=== PATIENT | male | born 1945 | race Caucasian/White ===

== ENCOUNTER 2018-06-27 23:40 | Emergency (ER) | payer OTHER ==
[2018-06-28] MEDS ORDERED: NA CHLORIDE 0.9% 1,000 ML ONE (00:20)
[2018-06-28 00:51] LABS: Absolute Lymphocytes (CBC) 0.5 K/uL (0.7-4.9); Absolute Monocytes 0.3 K/uL (0.1-1.3); Absolute Neutrophil 6.9 K/uL (1.8-8.0); Basophils % 0.2 % (0-1.3); Eosinophils % 1.9 % (0-4.4); Hematocrit 42.6 % (39.6-49.0); Lymphocytes % 6.2 % (15.3-44.8); MPV 8.1 fL (7.6-11.3); Monocytes % 3.8 % (3.3-12.3); RBC Red Blood Cell Count 5.08 M/uL (4.33-5.43)
[2018-06-28 01:14] LABS: ALT/SGPT 34 U/L (12-78); AST/SGOT 25 U/L (15-37); Albumin 3.5 g/dL (3.4-5.0); Alkaline Phosphatase 94 U/L (45-117); BUN Blood Urea Nitrogen 18 mg/dL (7-18); Bicarbonate 23 mmol/L (21-32); Bilirubin Direct 0.1 mg/dL (0-0.2); Bilirubin Total 0.4 mg/dL (0.2-1.0); Creatine Phosphokinase 117 U/L (39-308); Glucose Level 198 mg/dL (74-106); Potassium 3.7 mmol/L (3.5-5.1); Protein, Total 6.6 g/dL (6.4-8.2); Sodium Level 143 mmol/L (136-145); Troponin (Emerg Dept Use Only) < 0.02 ng/mL (0.0-0.045)
[2018-06-28 02:19] LABS: Urine Bacteria <20 /HPF (NONE SEEN); Urine Culture Reflex Order NOT NEEDED; Urine Mucus LIGHT /HPF (NONE SEEN); Urine RBC NONE SEEN /HPF (NONE SEEN)
--- NOTE | 2018-06-28 02:44 | ER ---
Nurse's Notes [facility] Name: John Marquez Age: 73 yrs Sex: Male : 1945 Arrival Date: 06/27/2018 Time: 23:45 Bed 27 Private MD: Diagnosis: Chills (without fever);Vomiting, unspecified Presentation: 06/28 00:00 Presenting complaint: Patient states: Around 9 I started to have some shivering and la1 chills, I then threw up and felt a bit better but I have been having a temp of 99.1. Transition of care: patient was not received from another setting of care. Onset of symptoms was June 28, 2018. Risk Assessment: Do you want to hurt yourself or someone else? Patient reports no desire to harm self or others. Initial Sepsis Screen: Does the patient meet any 2 criteria? No. Patient's initial sepsis screen is negative. Does the patient have a suspected source of infection? No. Patient's initial sepsis screen is negative. Care prior to arrival: None. 00:00 Method Of Arrival: Ambulatory la1 00:00 Acuity: NATALI 3 la1 Triage Assessment: 00:31 GI: Reports vomiting. rv Historical: - Allergies: 00:02 SHELLFISH; la1 - Home Meds: 00:02 Bystolic 10 mg oral tab 1 tab once daily [Active]; Zyrtec 10 mg Oral chew 1 tab once la1 daily [Active]; Pepcid 20 mg Oral tab 1 tab every 6 hours [Active]; aspirin 81 mg Oral TbEC 1 tab once daily [Active]; - PMHx: 00:02 Hypertension; hives; la1 - PSHx: 00:02 Cholecystectomy; Lithotripsy; la1 - Immunization history:: Adult Immunizations up to date. - Social history:: Smoking status: Patient/guardian denies using tobacco. - Ebola Screening: : No symptoms or risks identified at this time. Screenin:30 Abuse screen: Denies threats or abuse. Denies injuries from another. Nutritional rv screening: No deficits noted. Tuberculosis screening: No symptoms or risk factors identified. Fall Risk None identified. Assessment: 00:29 General: Appears in no apparent distress. comfortable, Behavior is calm, cooperative. rv Pain: Denies pain. Neuro: Level of Consciousness is awake, alert, obeys commands, Oriented to person, place, time, situation. Cardiovascular: Capillary refill < 3 seconds. Respiratory: Airway is patent. GI: Abdomen is flat. : No signs and/or symptoms were reported regarding the genitourinary system. EENT: No signs and/or symptoms were reported regarding the EENT system. Derm: Skin is intact. Musculoskeletal: No signs and/or symptoms reported regarding the musculoskeletal system. 02:37 Reassessment: Patient appears in no apparent distress at this time. Patient and/or rv family updated on plan of care and expected duration. Pain level reassessed. Patient is alert, oriented x 3, equal unlabored respirations, skin warm/dry/pink. Vital Signs: 00:03 BP 135 / 66; Pulse 98; Resp 18; Temp 99.1(O); Pulse Ox 98% on R/A; Weight 88.45 kg; la1 Height 6 ft. 6 in. (198.12 cm); 00:45 BP 131 / 71; Pulse 84; Resp 18 S; Pulse Ox 98% on R/A; rv 01:40 BP 120 / 69; Pulse 81; Resp 18 S; Pulse Ox 98% on R/A; rv 02:15 BP 127 / 72; Pulse 73; Resp 16 S; Pulse Ox 99% on R/A; rv 00:03 Body Mass Index 22.53 (88.45 kg, 198.12 cm) la1 ED Course: 06/27 23:45 Patient arrived in ED. ds1 23:53 Ashley Eng FNP-C [facility]. snw 23:53 Devante Burns MD is Attending Physician. w 06/28 00:00 Ian Rodrigez RN is Primary Nurse. la1 00:01 Triage completed. la1 00:03 Arm band placed on left wrist. la1 00:05 Inserted saline lock: 20 gauge in left forearm, using aseptic technique. Blood rv collected. 00:29 Flu Sent. rv 00:31 Patient has correct armband on for positive identification. Placed in gown. Bed in low rv position. Call light in reach. Side rails up X 1. Adult w/ patient. Pulse ox on. NIBP on. 02:00 Urine Microscopic Only Sent. rv 02:01 Urine Culture Sent. rv 02:59 No provider procedures requiring assistance completed. IV discontinued, bleeding rv controlled, No redness/swelling at site. Pressure dressing applied. Administered Medications: 00:28 Drug: NS 0.9% 1000 ml Route: IV; Rate: 125 ml/hr; Site: left forearm; rv Outcome: 02:44 Discharge ordered by . jer 03:00 Discharged to home ambulatory. rv 03:00 Condition: good 03:00 Discharge instructions given to patient, Instructed on discharge instructions, follow up and referral plans. Demonstrated understanding of instructions, follow-up care. 03:00 Patient left the ED. rv Signatures: Ashley Eng, QUILL WORKER-C QUILL WORKER-Csnw Deepika La ds1 Ian Rodrigez, RN RN la1 Delio Tan RN RN rv
--- NOTE | 2018-06-28 02:44 | EDPHYS ---
Physician Documentation [facility] Name: John Marquez Age: 73 yrs Sex: Male : 1945 Arrival Date: 06/27/2018 Time: 23:45 Bed 27 Private MD: ED Physician Devante Burns HPI: 06/28 00:15 This 73 yrs old Male presents to ER via Ambulatory with complaints of Chills, snw Vomiting. 00:15 Sudden onset of chills, nausea, vomited x 1. Onset: The symptoms/episode began/occurred snw suddenly, just prior to arrival. Severity of symptoms: At their worst the symptoms were severe in the emergency department the symptoms have improved moderately. The patient has not experienced similar symptoms in the past. seeing Dr. Gambino for urticaria. Historical: - Allergies: 00:02 SHELLFISH; la1 - Home Meds: 00:02 Bystolic 10 mg oral tab 1 tab once daily [Active]; Zyrtec 10 mg Oral chew 1 tab once la1 daily [Active]; Pepcid 20 mg Oral tab 1 tab every 6 hours [Active]; aspirin 81 mg Oral TbEC 1 tab once daily [Active]; - PMHx: 00:02 Hypertension; hives; la1 - PSHx: 00:02 Cholecystectomy; Lithotripsy; la1 - Immunization history:: Adult Immunizations up to date. - Social history:: Smoking status: Patient/guardian denies using tobacco. - Ebola Screening: : No symptoms or risks identified at this time. ROS: 00:14 Eyes: Negative for injury, pain, redness, and discharge, ENT: Negative for injury, snw pain, and discharge, Neck: Negative for injury, pain, and swelling, Cardiovascular: Negative for chest pain, palpitations, and edema, Respiratory: Negative for shortness of breath, cough, wheezing, and pleuritic chest pain. 00:14 Back: Negative for injury and pain, : Negative for injury, bleeding, discharge, and swelling, MS/Extremity: Negative for injury and deformity, Skin: Negative for injury, rash, and discoloration, Neuro: Negative for headache, weakness, numbness, tingling, and seizure. 00:14 Constitutional: Positive for body aches, chills, fever, malaise. 00:14 Abdomen/GI: Positive for vomiting. Exam: 00:14 Head/Face: Normocephalic, atraumatic. Eyes: Pupils equal round and reactive to light, snw extra-ocular motions intact. Lids and lashes normal. Conjunctiva and sclera are non-icteric and not injected. Cornea within normal limits. Periorbital areas with no swelling, redness, or edema. ENT: Nares patent. No nasal discharge, no septal abnormalities noted. Tympanic membranes are normal and external auditory canals are clear. Oropharynx with no redness, swelling, or masses, exudates, or evidence of obstruction, uvula midline. Mucous membranes moist. Neck: Trachea midline, no thyromegaly or masses palpated, and no cervical lymphadenopathy. Supple, full range of motion without nuchal rigidity, or vertebral point tenderness. No Meningismus. Chest/axilla: Normal chest wall appearance and motion. Nontender with no deformity. No lesions are appreciated. Cardiovascular: Regular rate and rhythm with a normal S1 and S2. No gallops, murmurs, or rubs. Normal PMI, no JVD. No pulse deficits. Respiratory: Lungs have equal breath sounds bilaterally, clear to auscultation and percussion. No rales, rhonchi or wheezes noted. No increased work of breathing, no retractions or nasal flaring. Abdomen/GI: Soft, non-tender, with normal bowel sounds. No distension or tympany. No guarding or rebound. No evidence of tenderness throughout. Back: No spinal tenderness. No costovertebral tenderness. Full range of motion. Skin: Warm, dry with normal turgor. Normal color with no rashes, no lesions, and no evidence of cellulitis. MS/ Extremity: Pulses equal, no cyanosis. Neurovascular intact. Full, normal range of motion. Neuro: Awake and alert, GCS 15, oriented to person, place, time, and situation. Cranial nerves II-XII grossly intact. Motor strength 5/5 in all extremities. Sensory grossly intact. Cerebellar exam normal. Normal gait. Psych: Awake, alert, with orientation to person, place and time. Behavior, mood, and affect are within normal limits. 00:14 Constitutional: The patient appears alert, awake, uncomfortable. Vital Signs: 00:03 BP 135 / 66; Pulse 98; Resp 18; Temp 99.1(O); Pulse Ox 98% on R/A; Weight 88.45 kg; la1 Height 6 ft. 6 in. (198.12 cm); 00:45 BP 131 / 71; Pulse 84; Resp 18 S; Pulse Ox 98% on R/A; rv 01:40 BP 120 / 69; Pulse 81; Resp 18 S; Pulse Ox 98% on R/A; rv 02:15 BP 127 / 72; Pulse 73; Resp 16 S; Pulse Ox 99% on R/A; rv 00:03 Body Mass Index 22.53 (88.45 kg, 198.12 cm) la1 MDM: 06/27 23:57 Patient medically screened. snw 06/28 02:45 Data reviewed: vital signs, nurses notes. Data interpreted: Pulse oximetry: on room air snw is 99 %. Interpretation: normal. Counseling: I had a detailed discussion with the patient and/or guardian regarding: the historical points, exam findings, and any diagnostic results supporting the discharge/admit diagnosis, lab results, the need for outpatient follow up, to return to the emergency department if symptoms worsen or persist or if there are any questions or concerns that arise at home. Special discussion: Based on the history and exam findings, there is no indication for further emergent testing or inpatient evaluation. I discussed with the patient/guardian the need to see the primary care provider for further evaluation of the symptoms. 06/27 23:54 Order name: Flu; Complete Time: 00:37 snw 06/27 23:54 Order name: Urine Culture snw 06/27 23:54 Order name: Urine Microscopic Only; Complete Time: 02:20 snw 06/28 00:05 Order name: Blood Culture Adult (2) snw 06/28 00:05 Order name: CBC with Diff; Complete Time: 01:00 snw 06/28 00:05 Order name: Chem 7; Complete Time: 01:27 snw 06/27 23:54 Order name: Urine Dipstick-Ancillary (obtain specimen); Complete Time: 02:00 snw 06/28 00:05 Order name: LFT's; Complete Time: :27 snw 06/28 00:05 Order name: CPK; Complete Time: 01:27 snw 06/28 00:05 Order name: Troponin (emerg Dept Use Only); Complete Time: 01:27 snw Administered Medications: 00:28 Drug: NS 0.9% 1000 ml Route: IV; Rate: 125 ml/hr; Site: left forearm; rv Disposition: 03:07 Co-signature as Attending Physician, Devante Burns MD. rn Disposition: 06/28/18 02:44 Discharged to Home. Impression: Chills (without fever), Vomiting, unspecified. - Condition is Stable. - Discharge Instructions: Fever, Adult, Nausea and Vomiting, Adult, Rehydration, Elderly. - Medication Reconciliation Form, Thank You Letter, Antibiotic Education, Prescription Opioid Use form. - Follow up: Private Physician; When: 1 - 2 days; Reason: Recheck today's complaints, Continuance of care, Re-evaluation by your physician. Follow up: Emergency Department; When: As needed; Reason: Worsening of condition. Signatures: Dispatcher [employer] EDMS Ashley Eng, CONE MACHINE OPERATOR-C CONE MACHINE OPERATOR-Csnw Devante Burns MD MD rn Attema, Lee RN RN la1 Delio Tan RN RN rv Corrections: (The following items were deleted from the chart) 03:00 02:44 06/28/2018 02:44 Discharged to Home. Impression: Chills (without fever); rv Vomiting, unspecified. Condition is Stable. Forms are Medication Reconciliation Form, Thank You Letter, Antibiotic Education, Prescription Opioid Use. Follow up: Private Physician; When: 1 - 2 days; Reason: Recheck today's complaints, Continuance of care, Re-evaluation by your physician. Follow up: Emergency Department; When: As needed; Reason: Worsening of condition. snw
== END 2018-06-28 03:00 | disposition home or self-care (01) ==
LOC: ER 23:40
DX: R11.10 Vomiting, unspecified (principal); I10 Essential (primary) hypertension; Z79.82 Long term (current) use of aspirin; Z91.013 Allergy to seafood
CPT/HCPCS: 36415; 80048; 80076; 81015; 82550; 84484; 85025; 87040 ×2; 87086; 87088; 87804 ×2; 99284; J7030

== ENCOUNTER 2021-05-31 17:34 | Inpatient (IN) | payer OTHER ==
--- OUTSIDE RECORDS SUMMARY | 2021-05-31 17:37 | XMS REPORT | Continuity of Care Document ---
:1945 Author Organization [facility] t Address [address] [place] [address] Care Team Providers Name Role Phone Maki Attending Clinician Unavailable EVE Attending Clinician Unavailable Problems This patient has no known problems. Allergies, Adverse Reactions, Alerts This patient has no known allergies or adverse reactions. Medications This patient has no known medications. Procedures This patient has no known procedures. Encounters Start End Encounter Admission Attending Care Care Encounter Source Date/Time Date/Time Type Type Clinicians Facility Department ID 2021-05-29 Outpatient CARLY Gambino [facility] [id number] 13:46:30 [place] [id number] [facility] 2021-04-02 2021-04-02 [facility] [id number] 00:00:00 00:00:00 [place] [address] 2021-03-05 2021-03-05 [facility] [id number] 00:00:00 00:00:00 [place] [address] Results This patient has no known results.
--- NOTE | 2021-05-31 18:05 | RAD REPORT ---
EXAM DESCRIPTION: CT - Ct Stroke Brain Wo Cont - 05/31/2021 5:56 pm CLINICAL HISTORY: Confusion/alteration of awareness COMPARISON: 2015 TECHNIQUE: Computed axial tomography of the head was obtained. All CT scans are performed using dose optimization technique as appropriate and may include automated exposure control or mA/KV adjustment according to patient size. FINDINGS: An intracranial bleed is not seen . The ventricles are normal in caliber. No extra-axial fluid collection is noted. Mild right maxillary sinusitis IMPRESSION: No acute intracranial abnormality is seen. If patient's symptoms persist MRI of the bra in would be recommended. Dr Dick of the emergency room was notified at 5:59 p.m. May 31, 2021
[2021-05-31 18:12] LABS: Absolute Lymphocytes (CBC) 2.2 K/uL (0.7-4.9); Hematocrit 43.2 % (39.6-49.0); Lymphocytes % 27.6 % (15.3-44.8); MPV 7.5 fL (7.6-11.3); RBC Red Blood Cell Count 5.05 M/uL (4.33-5.43)
[2021-05-31 18:23] LABS: Protime INR 0.97
[2021-05-31 18:24] LABS: Potassium 3.6 mmol/L (3.5-5.1)
--- NOTE | 2021-05-31 18:41 | RAD REPORT ---
EXAM DESCRIPTION: Wolfgang Single View05/31/2021 6:27 pm CLINICAL HISTORY: confusion COMPARISON: February 2021 FINDINGS: The lungs appear clear of acute infiltrate. The heart is normal size IMPRESSION: No acute abnormalities displayed
--- NOTE | 2021-05-31 20:01 | EDPHYS ---
Physician Documentation [facility] Name: John Marquez Age: 76 yrs Sex: Male : 1945 Arrival Date: 05/31/2021 Time: 17:35 Bed 13 Private MD: ED Physician Tito Dick HPI: 05/31 18:19 This 76 yrs old Male presents to ER via Ambulatory with complaints of confusion. kdr 18:19 The patient presents with confusion, States that he was not able to recall names of kdr people that he normally would have command of. These individuals were persons currently in his life from spiritism and elsewhere that he would normally have recall of. His stated that he did not have any slurred speech or any other changes in his mental status. There is also no other weakness or numbness in his extremities. Since initially noted, he seems to improved.. Onset: The symptoms/episode began/occurred suddenly, just prior to arrival. Possible causes: CVA or TIA. Associated signs and symptoms: The patient has no apparent associated signs or symptoms. Current symptoms: In the emergency department the patient's symptoms have improved, markedly. Patient's baseline: Neuro: alert and fully oriented, Motor: no deficits, Ambulation: walks without assistance, Speech: normal, The patient has a previous history of Hypertension. The patient has not experienced similar symptoms in the past. The patient has not recently seen a physician. Discussed with Dr. Grajeda: Plan "A": Transfer to [facility]; plan "B" observation here at [facility]; plan "C" discharge home with treatment. Historical: - Allergies: 17:59 SHELLFISH; ap3 - Home Meds: 18:20 aspirin 81 mg Oral TbEC 1 tab once daily [Active]; Bystolic 10 mg Oral tab 1 tab once jh6 daily [Active]; Pepcid 20 mg Oral tab 1 tab every 6 hours [Active]; Zyrtec 10 mg Oral chew 1 tab once daily [Active]; - PMHx: 17:59 Hives; Hypertension; ap3 18:20 Transient cerebral ischemia; jh6 - PSHx: 17:59 Cholecystectomy; ap3 - Immunization history:: Client reports receiving the 2nd dose of the Covid vaccine, and booster. - Social history:: Smoking status: Patient denies any tobacco usage or history of. ROS: 18:19 Constitutional: Negative for fever, chills, and weight loss, Eyes: Negative for injury, kdr pain, redness, and discharge, ENT: Negative for injury, pain, and discharge, Neck: Negative for injury, pain, and swelling, Cardiovascular: Negative for chest pain, palpitations, and edema, Respiratory: Negative for shortness of breath, cough, wheezing, and pleuritic chest pain, Abdomen/GI: Negative for abdominal pain, nausea, vomiting, diarrhea, and constipation, Back: Negative for injury and pain, : Negative for injury, bleeding, discharge, and swelling, MS/Extremity: Negative for injury and deformity, Skin: Negative for injury, rash, and discoloration, Psych: Negative for depression, anxiety, suicide ideation, homicidal ideation, and hallucinations, Allergy/Immunology: Negative for hives, rash, and allergies, Endocrine: Negative for neck swelling, polydipsia, polyuria, polyphagia, and marked weight changes, Hematologic/Lymphatic: Negative for swollen nodes, abnormal bleeding, and unusual bruising. 18:19 Neuro: Positive for Poor recall of names that otherwise would be known to him, Negative for altered mental status, dizziness, gait disturbance, headache, hearing loss, loss of consciousness, numbness, seizure activity, speech changes, syncope, near syncope, tingling, tinnitus, tremor, visual changes, weakness. Exam: 18:19 Constitutional: This is a well developed, well nourished patient who is awake, alert, kdr and in no acute distress. Head/Face: Normocephalic, atraumatic. Eyes: Pupils equal round and reactive to light, extra-ocular motions intact. Lids and lashes normal. Conjunctiva and sclera are non-icteric and not injected. Cornea within normal limits. Periorbital areas with no swelling, redness, or edema. Neck: Trachea midline, no thyromegaly or masses palpated, and no cervical lymphadenopathy. Supple, full range of motion without nuchal rigidity, or vertebral point tenderness. No Meningismus. Chest/axilla: Normal chest wall appearance and motion. Nontender with no deformity. No lesions are appreciated. Cardiovascular: Regular rate and rhythm with a normal S1 and S2. No gallops, murmurs, or rubs. Normal PMI, no JVD. No pulse deficits. Respiratory: Lungs have equal breath sounds bilaterally, clear to auscultation and percussion. No rales, rhonchi or wheezes noted. No increased work of breathing, no retractions or nasal flaring. Abdomen/GI: Soft, non-tender, with normal bowel sounds. No distension or tympany. No guarding or rebound. No evidence of tenderness throughout. Back: No spinal tenderness. No costovertebral tenderness. Full range of motion. Skin: Warm, dry with normal turgor. Normal color with no rashes, no lesions, and no evidence of cellulitis. MS/ Extremity: Pulses equal, no cyanosis. Neurovascular intact. Full, normal range of motion. Neuro: Awake and alert, GCS 15, oriented to person, place, time, and situation. Cranial nerves II-XII grossly intact. Motor strength 5/5 in all extremities. Sensory grossly intact. Cerebellar exam normal. Normal gait. Psych: Awake, alert, with orientation to person, place and time. Behavior, mood, and affect are within normal limits. Vital Signs: 17:58 Temp 97.9; Weight 83.91 kg; Height 6 ft. 6 in. (198.12 cm); ap3 18:17 BP 168 / 84; Pulse 67; Resp 18; Pulse Ox 100% ; Pain 0/10; jh6 20:54 BP 132 / 82; Pulse 78; Resp 18; Pulse Ox 100% on R/A; saw 22:06 BP 154 / 93; Pulse 72; Resp 18; Pulse Ox 100% on R/A; saw 23:07 BP 140 / 76; Pulse 78; Resp 16; Pulse Ox 98% on NC; Pain 0/10; saw 06/01 00:00 BP 140 / 76; Pulse 68; Resp 16; Pulse Ox 100% on R/A; saw 01:21 BP 140 / 78; Pulse 72; Resp 16; Pulse Ox 99% on R/A; saw 02:15 BP 146 / 82; Pulse 63; Resp 14; Pulse Ox 99% on R/A; Pain 0/10; saw 04:41 BP 126 / 71; Pulse 55; Resp 16; Pulse Ox 100% on R/A; saw 05:31 BP 132 / 70; Pulse 51; Resp 12; Pulse Ox 98% on R/A; saw 05/31 17:58 Body Mass Index 21.38 (83.91 kg, 198.12 cm) ap3 MDM: 05/31 20:00 Patient medically screened. kdr 20:01 Data reviewed: vital signs, nurses notes, lab test result(s), radiologic studies. [facility] 05/31 17:44 Order name: Basic Metabolic Panel; Complete Time: 19:32 kdr 05/31 17:44 Order name: CBC with Diff; Complete Time: 19:32 [facility] 05/31 17:44 Order name: Protime (+inr); Complete Time: 19:32 [facility] 05/31 17:44 Order name: Ptt, Activated; Complete Time: 19:32 [facility] 05/31 18:09 Order name: Glucose, Ancillary Testing; Complete Time: 19:32 [facility] 05/31 18:50 Order name: COVID-19 SARS RT PCR (Document "Date of Onset" if Symptomatic) cs9 06/01 12:13 Order name: Urinalysis [facility] 06/01 12:25 Order name: CBC with Automated Diff [facility] 06/01 12:47 Order name: Comprehensive Metabolic Panel [facility] 06/01 12:47 Order name: Phosphorus [facility] 06/01 12:47 Order name: Lipid Profile [facility] 06/01 12:47 Order name: T4 Free [facility] 06/01 12:47 Order name: Magnesium [facility] 06/01 12:47 Order name: Thyroid Stimulating Hormone [facility] 05/31 17:44 Order name: CT Stroke Brain w/o Contrast; Complete Time: 19:32 [facility] 05/31 17:44 Order name: Stroke CXR 1 View; Complete Time: 19:32 [facility] 05/31 17:44 Order name: EKG; Complete Time: 17:45 [facility] 05/31 17:44 Order name: Accucheck; Complete Time: 18:06 [facility] 05/31 17:44 Order name: Cardiac monitoring; Complete Time: 18:06 [facility] 05/31 17:44 Order name: EKG - Nurse/Tech; Complete Time: 18:06 [facility] 05/31 17:44 Order name: IV Saline Lock; Complete Time: 18:07 [facility] 05/31 17:44 Order name: Labs collected and sent; Complete Time: 18:07 [facility] 05/31 17:44 Order name: NPO; Complete Time: 18:07 [facility] 05/31 17:44 Order name: O2 Per Protocol; Complete Time: 18:07 [facility] 05/31 17:44 Order name: O2 Sat Monitoring; Complete Time: 18:07 kdr 05/31 20:34 Order name: CONS Physician Consult [facility] 06/01 09:00 Order name: Diet Heart Healthy; Complete Time: 09:01 [facility] 06/01 11:45 Order name: US EDMS 05/31 17:44 Order name: Stroke Swallow Screen; Complete Time: 18:07 kdr Administered Medications: 22:17 Not Given (not availablee): NexIUM (esomeprazole) Delayed Release Capsule 40 mg PO once saw 22:17 Drug: ZyrTEC - Cetirizine 10 mg Route: PO; saw 23:06 Follow up: Response: No adverse reaction saw Disposition Summary: 05/31/21 20:00 Hospitalization Ordered Hospitalization Status: Inpatient Admission kdr Provider: Stacey Hall Condition: Fair kdr Problem: new kdr Symptoms: have improved kdr Bed/Room Type: Standard kdr Location: Telemetry/MedSurg (Inpatient)(06/01/21 20:03) Room Assignment: [facility](06/01/21 20:03) Diagnosis - Memory deficit, TIA kdr Forms: - Medication Reconciliation Form kdr - SBAR form kdr Signatures: Dispatcher [employer] [facility] Ruthie Mahmood RN RN Tito Dick MD MD kdr Prokisch, Amanda RN RN ap3 Andrew Reynolds PA PA ej Hastedt, Jennifer RN RN jh6 Mariela Leonard RN RN bo Corrections: (The following items were deleted from the chart) 20:35 20:00 Telemetry/MedSurg (Inpatient) kdr 20:35 20:00 kdr 06/01 20:03 05/31 20:35 [facility] ER HOLD mw 06/01 20:03 05/31 20:35 ERHOLD- mw
--- NOTE | 2021-05-31 20:01 | ER ---
Nurse's Notes [facility] Name: John Marquez Age: 76 yrs Sex: Male : 1945 Arrival Date: 05/31/2021 Time: 17:35 Bed 13 Private MD: Diagnosis: Memory deficit, TIA Presentation: 05/31 17:58 Chief complaint: Spouse and/or significant other states: patient had some confusion at ap3 approx 1700 this evening. It is reported that patient was unable to recognize close family members and didn't have the ability to properly form words. Coronavirus screen: At this time, the client does not indicate any symptoms associated with coronavirus-19. Ebola Screen: No symptoms or risks identified at this time. Initial Sepsis Screen: Does the patient meet any 2 criteria? No. Patient's initial sepsis screen is negative. Does the patient have a suspected source of infection? No. Patient's initial sepsis screen is negative. Risk Assessment: Do you want to hurt yourself or someone else? Patient reports no desire to harm self or others. Onset of symptoms was May 31, 2021 at 17:00. 17:58 Method Of Arrival: Ambulatory ap3 17:58 Acuity: NATALI 2 ap3 Triage Assessment: 18:00 General: Appears in no apparent distress. comfortable, Behavior is calm, cooperative, ap3 appropriate for age. Pain: Denies pain. Neuro: Level of Consciousness is awake, alert, obeys commands, Oriented to person, place, time, situation, Appropriate for age Necktie Maker are equal bilaterally Gait is steady, Speech is normal, Facial symmetry appears normal. Respiratory: Airway is patent Respiratory effort is even, unlabored. Historical: - Allergies: 17:59 SHELLFISH; ap3 - Home Meds: 18:20 aspirin 81 mg Oral TbEC 1 tab once daily [Active]; Bystolic 10 mg Oral tab 1 tab once jh6 daily [Active]; Pepcid 20 mg Oral tab 1 tab every 6 hours [Active]; Zyrtec 10 mg Oral chew 1 tab once daily [Active]; - PMHx: 17:59 Hives; Hypertension; ap3 18:20 Transient cerebral ischemia; jh6 - PSHx: 17:59 Cholecystectomy; ap3 - Immunization history:: Client reports receiving the 2nd dose of the Covid vaccine, and booster. - Social history:: Smoking status: Patient denies any tobacco usage or history of. Screenin:59 Abuse screen: Denies threats or abuse. Nutritional screening: No deficits noted. ap3 Tuberculosis screening: No symptoms or risk factors identified. 18:20 Fall Risk Secondary diagnosis (15 points) TIA, IV access (20 points). Gait- Normal/Bed jh6 Rest/Wheelchair (0 pts). Assessment: 18:05 General: Appears in no apparent distress. comfortable, slender, well groomed, well jh6 developed, well nourished, Behavior is calm, cooperative, appropriate for age. 18:05 Pain: Denies pain. Neuro: No deficits noted. Oriented to person, place, time, jh6 situation, Appropriate for age Necktie Maker are equal bilaterally Moves all extremities. Full function Gait is steady, Speech is normal, Facial symmetry appears normal, Pupils are PERRLA, Intact Reports difficulty remembering family members names and episode of confusion lasting aprox 30min. Cardiovascular: No deficits noted. Capillary refill < 3 seconds JVD is absent Pulses are all present. Edema is absent. Rhythm is sinus rhythm Chest pain is denied. Respiratory: No deficits noted. GI: No deficits noted. : No deficits noted. 06/01 20:58 Reassessment: Patient report given to ANNIE Moreau , Patient admitted to Room 221. All st1 questions and concerns addressed. . Vital Signs: 05/31 17:58 Temp 97.9; Weight 83.91 kg; Height 6 ft. 6 in. (198.12 cm); ap3 18:17 BP 168 / 84; Pulse 67; Resp 18; Pulse Ox 100% ; Pain 0/10; jh6 20:54 BP 132 / 82; Pulse 78; Resp 18; Pulse Ox 100% on R/A; saw 22:06 BP 154 / 93; Pulse 72; Resp 18; Pulse Ox 100% on R/A; saw 23:07 BP 140 / 76; Pulse 78; Resp 16; Pulse Ox 98% on NC; Pain 0/10; saw 06/01 00:00 BP 140 / 76; Pulse 68; Resp 16; Pulse Ox 100% on R/A; saw 01:21 BP 140 / 78; Pulse 72; Resp 16; Pulse Ox 99% on R/A; saw 02:15 BP 146 / 82; Pulse 63; Resp 14; Pulse Ox 99% on R/A; Pain 0/10; saw 04:41 BP 126 / 71; Pulse 55; Resp 16; Pulse Ox 100% on R/A; saw 05:31 BP 132 / 70; Pulse 51; Resp 12; Pulse Ox 98% on R/A; saw 05/31 17:58 Body Mass Index 21.38 (83.91 kg, 198.12 cm) ap3 Vitals: 05/31 18:17 Cardiac Rhythm Assessment Regular Sinus rhythm. 6 ED Course: 17:35 Patient arrived in ED. ds1 17:43 Tito Dick MD is Attending Physician. kdr 17:55 EKG done, by ED staff, reviewed by Tito Dick MD. dh3 17:56 CT Stroke Brain w/o Contrast In Process Unspecified. EDMS 17:59 Triage completed. ap3 17:59 Arm band placed on right wrist. ap3 18:00 Patient has correct armband on for positive identification. Placed in gown. Bed in low ap3 position. Call light in reach. Side rails up X2. Adult w/ patient. school bus monitor on. Pulse ox on. NIBP on. Door closed. Noise minimized. 18:00 Initial lab(s) drawn, by nm, sent to lab. Inserted saline lock: 20 gauge in right dh3 forearm, using aseptic technique. Blood collected. 18:06 Sherie Oreilly, RN is Primary Nurse. jh6 18:20 Inserted. jh6 18:20 X-ray(s) taken. jh6 18:27 Stroke CXR 1 View In Process Unspecified. EDMS 20:00 Stacey Hall MD is Hospitalizing Provider. kdr 20:55 No provider procedures requiring assistance completed. saw 21:08 COVID-19 SARS RT PCR (Document "Date of Onset" if Symptomatic) Sent. saw 06/01 07:19 Patient admitted, IV remains in place. jg9 19:46 Primary Nurse role handed off by Sherie Oreilly, RN cs9 Administered Medications: 05/31 22:17 Not Given (not availablee): NexIUM (esomeprazole) Delayed Release Capsule 40 mg PO once saw 22:17 Drug: ZyrTEC - Cetirizine 10 mg Route: PO; saw 23:06 Follow up: Response: No adverse reaction saw Outcome: 20:00 Decision to Hospitalize by Provider. kdr 20:55 Condition: stable saw 06/01 07:19 Admitted to ER Hold. Please see [facility] for further documentation. jg9 21:19 Patient left the ED. st1 Signatures: Dispatcher [employer] EDMS Tito Dick MD MD kdr Sanford, Demi ds1 Love Haywood 3 Sherly Fountain, RN RN 3 Sue Motnerroso 9 Sherie Oreilly, RN RN jh6 Sherie Condon, RN RN jg9 Mariela Leonard RN Malinda Omalley, RN RN st1
--- NOTE | 2021-05-31 21:49 | P.HP ---
Certification for Inpatient Patient admitted to: Observation With expected LOS: <2 Midnights Patient will require the following post-hospital care: None Practitioner: I am a practitioner with admitting privileges, knowledge of patient current condition, hospital course, and medical plan of care. Services: Services provided to patient in accordance with Admission requirements found in Title 42 Section 412.3 of the Code of Federal Regulations <Andrew Reynolds - Last Filed: 05/31/21 21:44> Patient History Date of Service: 05/31/21 Primary Care Provider: Maki Reason for admission: speech difficulty History of Present Illness: Mr. Marquez is a 76 yo M with hypertension and history of TIa who presents with an episode of speech difficulty. He was on the phone when suddenly he had difficulty formulating words and remember the names of close friends and neighbors. He took a few tablets of aspirin and 30 minutes later his symptom improved. Denies slurred speech, weakness, numbness, tingling. Right now, he feels close to baseline. He typically takes aspirin daily, but he stopped about a month ago because he is supposed to have a biopsy of his prostate at [facility] next week. Labs reviewed. CT head without acute findings. - Past Medical/Surgical History -: HTN -: TIA -: cholecystectomy - Family History Family History: Reviewed- Non-Contributory - Social History Smoking Status: Never smoker Alcohol use: No CD- Drugs: No Caffeine use: No Place of Residence: Home <Andrew Reynolds - Last Filed: 05/31/21 21:44> Date of Service: 05/31/21 <Stacey Hall - Last Filed: 06/03/21 00:33> Allergies shellfish derived Allergy (Mild, Verified 06/01/21 09:02) Rash Home Medications: Cetirizine HCl [Zyrtec] 10 mg PO DAILY 06/01/21 Famotidine [Pepcid*] 20 mg PO Q6HR 06/01/21 Fenofibrate Nanocrystallized [Fenofibrate] 06/01/21 Nebivolol HCl [Bystolic*] 5 mg PO DAILY 06/01/21 Aspirin [Aspirin EC 81 MG] 81 mg PO 06/02/21 Review of Systems 10-point ROS is otherwise unremarkable General: Unremarkable Eyes: Unremarkable ENT: Unremarkable Respiratory: Unremarkable Cardiovascular: Unremarkable Gastrointestinal: Unremarkable Genitourinary: Unremarkable Musculoskeletal: Unremarkable Integumentary: Unremarkable Neurological: Change in Speech Lymphatics: Unremarkable <Andrew Reynolds - Last Filed: 05/31/21 21:44> Physical Examination - Physical Exam General: Alert, In no apparent distress HEENT: Atraumatic, PERRLA, Mucous membr. moist/pink, EOMI, Sclerae nonicteric Neck: Supple, 2+ carotid pulse no bruit, No LAD, Without JVD or thyroid abnormality Respiratory: Clear to auscultation bilaterally, Normal air movement Cardiovascular: Regular rate/rhythm, Normal S1 S2 Gastrointestinal: Normal bowel sounds, No tenderness Musculoskeletal: No tenderness Integumentary: No rashes Neurological: Normal speech, Normal strength at 5/5 x4 extr, Normal tone, Normal affect Lymphatics: No axilla or inguinal lymphadenopathy - Studies Laboratory Data (last 24 hrs) 05/31/21 18:00: PT 11.2, INR 0.97, APTT 30.5 05/31/21 18:00: WBC 7.80, Hgb 14.2, Hct 43.2, Plt Count 200 05/31/21 18:00: Sodium 141, Potassium 3.6, BUN 15, Creatinine 1.06, Glucose 112 H <Andrew Reynolds - Last Filed: 05/31/21 21:44> Assessment and Plan - Problems (Diagnosis) (1) HTN (hypertension) Current Visit: Yes Status: Chronic Qualifiers: Hypertension type: primary hypertension Qualified Code(s): I10 - Essential (primary) hypertension (2) TIA (transient ischemic attack) Current Visit: Yes Status: Chronic (3) Difficulty with speech Current Visit: Yes Status: Acute - Plan neurology consulted daily aspirin, statin, folic acid lipid panel pending MRI stroke, carotid US, ECHO pending PT consulted permissive hypertension reconcile and continue home medications DVT ppx Discharge Plan: Home Plan to discharge in: 24 Hours - Advance Directives Does patient have a Living Will: No Does patient have a Durable POA for Healthcare: No - Code Status/Comfort Care Code Status Assessed: Yes (full code) Critical Care: No Time Spent Managing Pts Care (In Minutes): 70 <Andrew Reynolds - Last Filed: 05/31/21 21:44> - Problems (Diagnosis) (1) CVA (cerebral vascular accident) Current Visit: Yes Status: Acute (2) Prostate mass Current Visit: Yes Status: Acute (3) Difficulty with speech Current Visit: Yes Status: Acute (4) HTN (hypertension) Current Visit: Yes Status: Chronic Qualifiers: Hypertension type: primary hypertension Qualified Code(s): I10 - Essential (primary) hypertension (5) TIA (transient ischemic attack) Current Visit: Yes Status: Chronic <Hall,tSacey Israel - Last Filed: 06/03/21 00:33> Date of Service: 05/31/21 Subjective Agree with the HPI as mentioned above Review of Systems 10-point ROS is otherwise unremarkable Physical Examination - Vital Signs Reviewed - Physical Exam General: Alert, In no apparent distress Respiratory: Clear to auscultation bilaterally, Normal air movement Cardiovascular: Regular rate/rhythm, Normal S1 S2 Gastrointestinal: Normal bowel sounds, No tenderness Musculoskeletal: No tenderness Assessment & Plan - Problems (Diagnosis) (1) CVA (cerebral vascular accident) Current Visit: Yes Status: Acute (2) Prostate mass Current Visit: Yes Status: Acute (3) Difficulty with speech Current Visit: Yes Status: Acute (4) HTN (hypertension) Current Visit: Yes Status: Chronic Qualifiers: Hypertension type: primary hypertension Qualified Code(s): I10 - Essential (primary) hypertension (5) TIA (transient ischemic attack) Current Visit: Yes Status: Chronic - Plan Plan of care as mentioned above - Advance Directives Does patient have a Living Will: No Does patient have a Durable POA for Healthcare: Yes <Stacey Hall - Last Filed: 06/03/21 00:33>
[2021-05-31] MEDS ORDERED: CETIRIZINE HCL 5 MG TABLET ONE (22:16)
[2021-06-01] MEDS ORDERED: ONDANSETRON 4 MG/2 ML VIAL IV PRN (10:34)
[2021-06-01] MEDS: ASPIRIN EC 81 MG TAB PO SCH (10:34)
[2021-06-01] MEDS: ENOXAPARIN 40 MG/0.4 ML SQ SCH (10:34)
[2021-06-01] MEDS: FLUTICASONE 50MCG NASAL SPRAY NAS SCH ×2 (10:34→20:06)
[2021-06-01] MEDS ORDERED: CETIRIZINE HCL 5 MG TABLET PO PRN (10:34)
[2021-06-01] MEDS ORDERED: ACETAMINOPHEN 500 MG TAB PO PRN (10:34)
[2021-06-01] MEDS: FOLIC ACID 1 MG TABLET PO SCH (10:34)
[2021-06-01] MEDS: PANTOPRAZOLE 40MG TABLET PO SCH ×2 (10:34→16:30)
[2021-06-01] MEDS: ATORVASTATIN 40 MG TAB PO SCH ×2 (10:34→20:07)
--- NOTE | 2021-06-01 11:43 | RAD REPORT ---
EXAM DESCRIPTION: USCarotid Artery Bilateral06/01/2021 11:32 am CLINICAL HISTORY: tia COMPARISON: None FINDINGS: The velocity of the right internal carotid artery equals 101 cm/sec. The right ICA/CCA rat io 1.3 The velocity of the left internal carotid artery equals 121 cm/sec. The left ICA/CCA ratio 1.3 Mild plaque is present within the carotid arteries. The vertebral arteries demonstrate antegrade flow IMPRESSION: Mild plaque within the carotid arteries without evidence of a hemodynamically significan t stenosis NASCET criteria used. Mild 0-49% stenosis Moderate 50-69% stenosis Severe 70-99% stenosis
[2021-06-01] MEDS ORDERED: PANTOPRAZOLE 40MG TABLET PO ONE ×2 (11:47→16:09)
[2021-06-01] MEDS ORDERED: FOLIC ACID 1 MG TABLET ONE (11:47)
[2021-06-01] MEDS ORDERED: ASPIRIN EC 81 MG TAB PO ONE (11:47)
[2021-06-01] MEDS ORDERED: ENOXAPARIN 40 MG/0.4 ML SQ ONE (11:48)
[2021-06-01 12:12] LABS: Urine Appearance CLEAR (Clear); Urine Bilirubin NEGATIVE (Negative); Urine Blood NEGATIVE (Negative); Urine Color YELLOW (Yellow); Urine Glucose NEGATIVE (Negative); Urine Protein NEGATIVE (Negative); Urine Urobilinogen 0.2 mg/dL (0.2-1.0); Urine pH 6.5 (5.0-7.0)
[2021-06-01 12:13] LABS: Urine Microscopic Reflex NO UMIC
[2021-06-01 12:24] LABS: Absolute Lymphocytes (CBC) 1.3 K/uL (0.7-4.9); Hematocrit 45.7 % (39.6-49.0); Lymphocytes % 18.7 % (15.3-44.8); MPV 7.7 fL (7.6-11.3); RBC Red Blood Cell Count 5.34 M/uL (4.33-5.43)
[2021-06-01 12:46] LABS: Albumin 3.5 g/dL (3.4-5.0); Bilirubin Total 0.6 mg/dL (0.2-1.0); Magnesium 2.3 mg/dL (1.8-2.4); Phosphorus 2.3 mg/dL (2.5-4.9); Potassium 3.9 mmol/L (3.5-5.1); Protein, Total 7.1 g/dL (6.4-8.2); Thyroid Stimulating Hormone 2.34 uIU/mL (0.360-3.740)
[2021-06-01] MEDS ORDERED: HOME MED 1 EA UNK (Famotidine [Pepcid*] 20 MG Tab) PO SCH (18:00)
[2021-06-01] MEDS ORDERED: ATORVASTATIN 20 MG TAB ONE (19:56)
[2021-06-01 22:59] VITALS: BMI 21.4
--- NOTE | 2021-06-02 00:47 | P.PN ---
Subjective Date of Service: 06/01/21 pt states that he was aphasic and concerned that he may have had a stroke. Symptoms resolved and clinically appears to have a TIA; he does not want to start Aspirin as he has a prostate biopsy pending for concern for prostate cancer-he does not want this delayed as if he has no concern for stroke then he would prefer not to take an aspirin until after prostate biopsy-awaiting neurology input Review of Systems 10-point ROS is otherwise unremarkable Physical Examination - Vital Signs Temperature: 97.7 F Blood Pressure: 148/94 Pulse: 61 Respirations: 16 Pulse Ox (%): 98 - Physical Exam General: Alert, In no apparent distress HEENT: Atraumatic, PERRLA, EOMI Neck: Supple, JVD not distended Respiratory: Clear to auscultation bilaterally, Normal air movement Cardiovascular: Regular rate/rhythm, Normal S1 S2 Gastrointestinal: Normal bowel sounds, No tenderness Musculoskeletal: No tenderness Integumentary: No rashes Neurological: Normal speech, Normal tone, Normal affect Lymphatics: No axilla or inguinal lymphadenopathy - Studies Medications List Reviewed: Yes Assessment & Plan - Problems (Diagnosis) (1) CVA (cerebral vascular accident) Current Visit: Yes Status: Acute (2) Prostate mass Current Visit: Yes Status: Acute (3) Difficulty with speech Current Visit: Yes Status: Acute (4) HTN (hypertension) Current Visit: Yes Status: Chronic Qualifiers: Hypertension type: primary hypertension Qualified Code(s): I10 - Essential (primary) hypertension (5) TIA (transient ischemic attack) Current Visit: Yes Status: Chronic - Plan Agree with plan of care as mentioned below: 1. Physical therapy evaluation 2. EEG; continue with anti epileptics; patient on fosphenytoin and Keppra 3. Anti-platelet therapy and statin therapy 4. Lipid profile in the morning 5. MRI of the brain/echocardiogram/carotid Doppler 6. Physically patient is doing well and may benefit more from outpatient physical therapy and inpatient rehab 7. Neurology consultation pending 8. Permissive hypertension and gradual blood pressure control 9. Neuro checks every 4 hr 10. GI and DVT prophylaxis Discharge Plan: Home Plan to discharge in: Greater than 2 days - Advance Directives Does patient have a Living Will: No Does patient have a Durable POA for Healthcare: Yes - Code Status/Comfort Care Code Status Assessed: Yes Code Status: Full Code Critical Care: No Time Spent Managing PTS Care (In Minutes): 35
[2021-06-02 06:24] LABS: Absolute Lymphocytes (CBC) 1.6 K/uL (0.7-4.9); Hematocrit 43.2 % (39.6-49.0); Lymphocytes % 25.2 % (15.3-44.8); RBC Red Blood Cell Count 5.05 M/uL (4.33-5.43)
[2021-06-02 06:31] LABS: Magnesium 2.4 mg/dL (1.8-2.4); Potassium 3.8 mmol/L (3.5-5.1)
[2021-06-02] MEDS: FOLIC ACID 1 MG TABLET PO SCH (08:58)
[2021-06-02] MEDS: ENOXAPARIN 40 MG/0.4 ML SQ SCH (08:58)
[2021-06-02] MEDS: CETIRIZINE HCL 5 MG TABLET PO SCH (08:58)
[2021-06-02] MEDS: PANTOPRAZOLE 40MG TABLET PO SCH ×2 (08:58→15:23)
[2021-06-02] MEDS: ASPIRIN EC 81 MG TAB PO SCH (08:58)
[2021-06-02] MEDS ORDERED: NEBIVOLOL HCL 5 MG PO SCH (09:00)
[2021-06-02] MEDS ORDERED: FAMOTIDINE 20 MG TAB PO SCH (09:00)
[2021-06-02] MEDS: NEBIVOLOL HCL 5 MG TAB PO SCH (09:02)
[2021-06-02] MEDS: ATORVASTATIN 40 MG TAB PO SCH (20:54)
[2021-06-02] MEDS: FLUTICASONE 50MCG NASAL SPRAY NAS SCH (20:55)
--- NOTE | 2021-06-02 23:57 | P.PN ---
Date of Service: 06/02/21 Subjective Patient is clinically feeling better. Patient awaiting for MRI. Prostate biopsy pending. Need to stop anti-platelet therapy prior to this. Family wants to know if they need to be on anti-platelet therapy and they are wanting to have MRI prior to discharge. Review of Systems 10-point ROS is otherwise unremarkable Physical Examination - Vital Signs Reviewed - Physical Exam General: Alert, In no apparent distress Respiratory: Clear to auscultation bilaterally, Normal air movement Cardiovascular: Regular rate/rhythm, Normal S1 S2 Gastrointestinal: Normal bowel sounds, No tenderness Neurological: Normal speech, Normal tone, Normal affect Assessment & Plan - Problems (Diagnosis) (1) CVA (cerebral vascular accident) Current Visit: Yes Status: Acute (2) Prostate mass Current Visit: Yes Status: Acute (3) Difficulty with speech Current Visit: Yes Status: Acute (4) HTN (hypertension) Current Visit: Yes Status: Chronic Qualifiers: Hypertension type: primary hypertension Qualified Code(s): I10 - Essential (primary) hypertension (5) TIA (transient ischemic attack) Current Visit: Yes Status: Chronic - Plan Continue with plan of care as mentioned below: 1. Continue with Physical therapy 2. Monitor hemodynamics 3. Anti-platelet therapy and statin therapy 4. LDL is elevated 5. MRI of the brain/echocardiogram/carotid Doppler-results pending 6. Physically patient is doing well and may benefit more from outpatient physical therapy and inpatient rehab 7. Neurology consultation pending 8. Permissive hypertension and gradual blood pressure control 9. Neuro checks every 4 hr 10. GI and DVT prophylaxis - Advance Directives Does patient have a Living Will: No Does patient have a Durable POA for Healthcare: Yes
[2021-06-03 07:12] VITALS: TEMP 97.5
[2021-06-03] MEDS ORDERED: LORazepam 2 MG/ML VIAL IV ONE (07:23)
[2021-06-03] MEDS: ENOXAPARIN 40 MG/0.4 ML SQ SCH (09:45)
[2021-06-03] MEDS: PANTOPRAZOLE 40MG TABLET PO SCH (09:45)
[2021-06-03] MEDS: CETIRIZINE HCL 5 MG TABLET PO SCH (09:45)
[2021-06-03] MEDS: NEBIVOLOL HCL 5 MG TAB PO SCH (09:45)
[2021-06-03] MEDS: FOLIC ACID 1 MG TABLET PO SCH (09:46)
[2021-06-03] MEDS: ASPIRIN EC 81 MG TAB PO SCH (09:46)
--- NOTE | 2021-06-03 10:29 | RAD REPORT ---
EXAM DESCRIPTION: MRI - Brain W/Wo Cont - 06/03/2021 8:34 am CLINICAL HISTORY: confusion Headache, drowsiness COMPARISON: MRA Head Wo Cont dated 06/03/2021 TECHNIQUE: Multi-sequence, multiplanar MR imaging of the brain was performed with contrast. FINDINGS: No intracranial hemorrhage, hydrocephalus, or extra-axial fluid collection.Mild brain atro phy is present with minimal periventricular and deep white matter chronic microvascular ischemia. No edema or shift of midline structures. No intracranial mass. DWI is negative for acute CVA. The midline structures are normally formed. Moderate polypoid mucosal thickening of both maxillary an tra. Post-contrast images show no abnormal enhancement to suggest tumor or infection. IMPRESSION: Negative for acute CVA or other acute intracranial finding. No pathologic post-contrast enhancement suspected.
--- NOTE | 2021-06-03 10:36 | RAD REPORT ---
EXAM DESCRIPTION: MRI - MRA Head Wo Cont - 06/03/2021 8:34 am CLINICAL HISTORY: confusion CVA COMPARISON: Ct Stroke Brain Wo Cont dated 05/31/2021 FINDINGS: 3D noncontrast [id number] MR angiography of the [place] was performed. No aneurysm, flow-limiting stenosis or vascular malformation is seen. Forward flow seen in codominant vertebral arteries. The visualized dural venous sinuses appear patent. IMPRESSION: No significant flow abnormality of the [place] is identified.
--- NOTE | 2021-06-03 11:07 | RAD REPORT ---
EXAM DESCRIPTION: MRI - MRA Neck W/Wo Cont - 06/03/2021 8:33 am CLINICAL HISTORY: CVA Headache, drowsiness COMPARISON: No comparisons FINDINGS: Contrast enhance 2D [id number] MR angiography of the neck vessels was performed. A left aortic arch is noted. Both common carotid arteries and subclavian arteries are patent. Both internal carotid arteries are patent without significant stenosis. Antegrade flow seen in both vertebral arteries. IMPRESSION: No significant flow abnormality in the neck vessels.
[2021-06-03 12:38] VITALS: O2SAT 99
--- NOTE | 2021-06-03 14:27 | PN ---
Date of Progress Note: 06/03/2021 The patient appears back to normal baseline. He has been seen by Dr. Grajeda, who knew him from a p rior TIA about 6 years ago and he is putting him on back on aspirin, Plavix, and folic acid and some discussion about the statins. The patient apparently came off the aspirin in preparation for a prost ate biopsy scheduled for next week. Apparently, this has been scheduled for some time. The possibil ity of being positive for cancer was considered with the urologist; however, the appointment had been scheduled months ago when he had seen him. In view of acute episode, discussion with the patient. Dr. Grajeda will make sense at this time to postpone the biopsy for at least a month, so that he cou ld maintain his blood thinner medication for the next month as well and come off the aspirin and Plav ix, specific date prior to surgery. His vascular workup basically normal for his age, but no acute c hanges. He will be discharged. He will follow up with me on Thursday and see Dr. Grajeda in 1 month. HR/MODL Voice ID: [id number] Report ID: [id number]
--- NOTE | 2021-06-03 14:44 | ECHO ---
HEIGHT: 6 ft 6 in WEIGHT: 185 lb 0 oz DATE OF STUDY: 06/03/[address]: Andrew Reynolds 2-DIMENSIONAL: YES M.MODE: YES DOPPLER: YES COLOR FLOW: YES TDS: PORTABLE: DEFINITY: BUBBLE STUDY: DIAGNOSIS: TRANSIENT ISCHEMIC ATTACK CARDIAC HISTORY: CATHERIZATION: NO SURGERY: NO PROSTHETIC VALVE: NO PACEMAKER: NO MEASUREMENTS (cm) DIASTOLIC (NORMALS) SYSTOLIC (NORMALS) IVSd 1.0 (0.6-1.2) LA Diam 3.1 (1.9-4.0) LVEF 55-60% LVIDd 3.3 (3.5-5.7) LVIDs 2.1 (2.0-3.5) %FS 37% LVPWd 1.2 (0.6-1.2) Ao Diam 2.7 (2.0-3.7) 2 DIMENSIONAL ASSESSMENT: RIGHT ATRIUM: NORMAL LEFT ATRIUM: NORMAL RIGHT VENTRICLE: NORMAL LEFT VENTRICLE: NORMAL TRICUSPID VALVE: NORMAL MITRAL VALVE: NORMAL PULMONIC VALVE: NORMAL AORTIC VALVE: NORMAL PERICARDIAL EFFUSION: NONE AORTIC ROOT: NORMAL LEFT VENTRICULAR WALL MOTION: NORMAL DOPPLER/COLOR FLOW: NORMAL COMMENTS: NORMAL LEFT VENTRICULAR EJECTION FRACTION 55-60%. NORMAL WALL MOTION ABNORMALITY. TECHNOLOGIST: TASHIA RYAN
[2021-06-03 15:18] VITALS: BP 136/76
--- NOTE | 2021-06-03 23:28 | CON ---
Reason For Consultation: Consultation called because of TIA. History Of Present Illness: Mr. Marquez is a 76-year-old patient with hypertension, prior stroke, TIA , who comes to the [facility] with an episode of slurred speech and difficulty in getting hi s words and thoughts out, perhaps lasting 30 minutes. He was on the phone speaking with friends when suddenly could not formulate words or remember the names of his close friends, neighbors and others. He took a full-dose aspirin and noted improvement in the symptoms within about 30 minutes. At that time, he came to [facility]. He was back to his baseline level of functioning. The patient was scheduled to have a prostate biopsy to rule out prostate cancer and was actually told to stop his aspirin prior to this episode. He did so about 2 months prior to that. He was on no ot her anticoagulation. Past Medical History: As indicated. Allergies: SHELLFISH. Current Medications: He is on aspirin 81 mg daily, Plavix 75 mg daily, folic acid 1 mg daily. He is on Lovenox for DVT prophylaxis. Lipitor 40 mg at bedtime. Patient said he does have muscle aches a nd rash with statins. Family History: Noncontributory. Social History: No alcohol, tobacco, or IV drug use. Review of Systems: Aside from mentioned above, no recent fevers, chills, nausea, vomiting, myalgias, arthralgias, rash, headache, weight change. Physical Examination: Vital Signs: Blood pressure 136/76, pulse 59, respiratory rate 16, temperature 97.5, oxygen saturati on 99% to 100% on room air. Weight 185 pounds, height 66 inches, BMI 21.4. General: Mr. Marquez is sitting in bed. His is at bedside. He is in no acute distress. HEENT: Normocephalic, atraumatic. Sclerae anicteric. Oropharynx is pink and moist. Neck: Supple. Chest: Clear. Heart: Regular. Extremities: Show no clubbing, cyanosis, edema. Neurological: He is alert and oriented to person, place, situation. Follows commands appropriately. Cranial nerves 2 through 12 intact. Motor; upper and lower extremity 5/5 proximally and distally. Sensory exam intact in upper and lower extremities. Coordination intact in upper and lower extremit ies. Reflexes symmetric 2+. Gait intact, upper and lower extremities. Laboratory Studies: Complete blood count with differential is normal. Coagulation panel normal. Ch emistries remarkable for slightly elevated glucose ranging 172 to 128, otherwise unremarkable. His L DL cholesterol 124, HDL cholesterol 37. Liver function studies are normal. Urinalysis normal. COVI D-19 test is negative. His brain MRI identifies no acute ischemic or hemorrhagic findings. There is mild brain atrophy. There is also moderate polypoid mucosal thickening of both maxillary antra. No findings of tumor on MRI postcontrast. Neck MRA shows no evidence of abnormalities in the neck vess el. MRA of the head shows no significant abnormalities in the [place]. Echocardiogram show ed ejection fraction 55% to 60% and is a normal study. Carotid artery ultrasound showed no evidence of hemodynamically significant stenosis. Assessment: Mr. Marquez is a 76-year-old patient who had a transient ischemic attack, aphasia after h e stopped aspirin 2 months in preparation for prostate biopsy. Plan: 1.He needs to get back on his aspirin regimen along with Plavix, folic acid, and statin if he can to lerate that. Otherwise, use Krill oil or other treatment options. 2.He may stop aspirin and Plavix 3 to 5 days prior to any scheduled surgical procedure and immediate ly restart at the end of that. He should not go more than 5 days of aspirin and Plavix. 3.He was told to continue aggressive management of any other risk factors, hydrate well and engage i n regular exercise. He may be discharged to home and followup in Dr. Grajeda's clinic 1 month later. Follow up with Dr. Maki zendejas scheduled. ANAIS/YOLIS Voice ID: [id number] Report ID: [id number]
== END 2021-06-03 16:06 | disposition home or self-care (01) | DRG 69 ==
LOC: ER 17:34 → OBSVTOIN 20:43 → ERHOLD 20:43 → 2ND 06-01 20:19
PROVIDERS: ADMIT Family Medicine; ATTEND Hospitalist
DX: G45.9 Transient cerebral ischemic attack, unspecified (principal); R47.01 Aphasia; I10 Essential (primary) hypertension; N42.9 Disorder of prostate, unspecified; Z86.73 Personal history of transient ischemic attack (TIA), and cerebral infarction without residual deficits; Z91.013 Allergy to seafood; Z20.822 Contact with and (suspected) exposure to COVID-19
CPT/HCPCS: 36415; 70450; 70544; 70549; 70553; 71045; 80048; 80053; 80061; 81003; 82947; 83735; 84100; 84439; 84443; 85025; 85610; 85730; 93306; 93880; 97161; 99285; A9577; J1650; U0003